=== PATIENT | male | born 1990 | race Two or more races ===

== ENCOUNTER 2016-11-23 23:43 | Emergency (ER) | payer SELFPAY ==
[~2016-11-23] VITALS: Ht 167.6 cm; Wt 73.0 kg
[2016-11-23] MEDS ORDERED: ONDANSETRON 2MG/ML, 2ML ONE (23:52)
[2016-11-24] MEDS ORDERED: SODIUM CHLORIDE 0.9% 1,000ML IVBOLUS ONE (00:30)
[2016-11-24] MEDS ORDERED: ONDANSETRON 2MG/ML, 2ML IVPush ONE (00:30)
[2016-11-24 06:09] VITALS: BP 124/75
== END 2016-11-24 07:36 | disposition home or self-care (01) ==
LOC: ED 23:59
DX: F10.120 Alcohol abuse with intoxication, uncomplicated (principal); R11.2 Nausea with vomiting, unspecified
CPT/HCPCS: 96361; 96374; 99284; J2405; J7030